=== PATIENT | female | born 1955 | race Caucasian/White ===

== ENCOUNTER → 2016-12-10 | Outpatient (CLI) | payer BC ==
[~2016-12-10] VITALS: Ht 154.9 cm; Wt 63.0 kg
[~2016-12-10] MED LIST: AMBIEN10 MG PO; DILAUDID 2MG(HYD2 MG PO; MULTI VITAMIN1 EACH PO; NEURONTIN300 MG PO; NORCO 5-325 TA1 EACH PO; PHILLIPS500 MG PO; PROZAC20 MG PO; PSYLLIUM HUSK1 GM PO; VALIUM5 MG PO; VITAMIN B-12500 MC3 SL; VITAMIN D1000 UNIT PO; XARELTO10 MG PO; ZETIA10 MG PO; ZYRTEC10 MG PO
== END | disposition disaster alternative care site (69) ==
LOC: GPOC 12:47 → EDSTATUS 12-11
DX: Z01.812 Encounter for preprocedural laboratory examination (principal); Z96.641 Presence of right artificial hip joint

== ENCOUNTER 2016-12-15 07:00 | Inpatient (IN) | payer BC ==
[~2016-12-15] VITALS: Ht 154.9 cm; Wt 63.0 kg
--- NOTE | ~2016-12-15 | DS ---
PATIENT'S NAME: LISA GUAMAN [facility] AGE: 61 Y [address] ROOM: [place] [address] LOCATION: N ADMIT DATE: 12/15/2016 Discharge Summary DISCHARGE DATE: 12/17/2016 FAMILY PHYSICIAN: Missy Hernandes APRN ATTENDING PHYSICIAN: Junaid Hodge DATE OF PROCEDURE: 12/15/2016. 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 SECONDARY DIAGNOSES: 1. Hypercholesterolemia. 2. Depression. 3. Hyperlipidemia. 4. Chronic insomnia. PROCEDURE PERFORMED: 1. Revision right total hip arthroplasty (extraction of well-fixed fractured femoral component with extended trochanteric osteotomy). 2. Revision of entire femoral component. 3. Revision of acetabular polyethylene liner. 4. Extensive synovectomy. HISTORY: The patient is a 61-year-old female, who underwent a primary right total hip arthroplasty with Dr. Reji Savage in [place] in 2010. She presents with significant pain and dysfunction. Her femoral component has fractured above the modular porous ingrowth metaphyseal seal sleeve of her S- ROM-type femoral component. Risks, benefits, limitations, and alternatives to revision total hip arthroplasty have been thoroughly reviewed. Please refer to her outpatient clinic notes and her admission history and physical. HOSPITAL COURSE: The patient underwent the above specified procedure on 12/15/2016 without complications. Spinal anesthesia plus general endotracheal anesthesia plus subcutaneous and periarticular local anesthesia was utilized. She received 72 hours of perioperative prophylactic antibiotics. Antibiotics were discontinued on postop day # 3, when cultures of synovial fluid taken at time of surgery were negative. She remained hemodynamically stable and neurovascularly intact throughout her entire hospital course. Her postoperative deep venous thrombosis prophylaxis consisted of Xarelto, early mobilization, and pneumatic compression devices. She received daily physical therapy for gait training and transfer training and reinforcement of her hip dislocation precautions and progressed well in physical therapy. On the date of discharge, the incision of the hip was healing well and showed no signs of infection. PATIENT'S NAME: LISA GUAMAN [facility] AGE: 61 Y [address] ROOM: [place] [address] LOCATION: [facility] ADMIT DATE: 12/15/2016 Discharge Summary DISCHARGE DATE: 12/17/2016 FAMILY PHYSICIAN: Missy Hernandes APRN ATTENDING PHYSICIAN: Junaid Hodge DISPOSITION: Home. DISCHARGE DIET: Regular diet. DISCHARGE ACTIVITY: She is to be strict touch toe weightbearing of the right lower extremity. She is to abide by her hip dislocation precautions diligently. She is to notify Dr. Hodge immediately if she experiences increased pain, fevers, chills, erythema, or drainage. There is to be no dressing changes. HER DISCHARGE MEDICATIONS: Include: 1. Xarelto 10 mg, take one tab p.o. daily for DVT prevention. 2. [place] 5/325, take 1-2 tablets p.o. every 4 hours as needed for pain. 3. Valium 5 mg, take 1/2 tablet to one tab every 6 hours as needed for muscle spasms. 4. Dilaudid 2 mg, take 1-2 tablets p.o. every 4 hours as needed for pain. FOLLOWUP: Followup appointment is to be with Dr. Hodge in one week subsequent to dismissal from the hospital for initial postop reevaluation. ARCENIO MANRIQUEZ FOR MD ROBB DAMICO/modl /[id number] d: 12/31/16 0322 t: 01/05/17 1539, DISCHARGE SUMMARY
--- NOTE | ~2016-12-15 | OR ---
[facility] AGE[facility] 61 Y [address] ROOM: [address] [address] LOCATION: [facility] ADMIT DATE: 12/15/2016 OR/Procedure Report DISCHARGE DATE: FAMILY PHYSICIAN: Missy Hernandes APRN ATTENDING PHYSICIAN: ERNESTINA FRASER SURGEON: Ernestina Fraser MD CURTAIN FRAMER: 1. Timo Romo CST/GENIA. 2. Ernestina Chen. 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 PROCEDURES PERFORMED: 1. Revision right total hip arthroplasty (extraction of well-fixed fractured femoral component with extended trochanteric osteotomy). 2. Revision of entire femoral component. 3. Revision of acetabular polyethylene liner. 4. Extensive synovectomy. ANESTHESIA: Spinal anesthesia plus general endotracheal anesthesia plus subcutaneous and periarticular local anesthesia (ropivacaine with epinephrine and Toradol). DRAINS: None. SPECIMENS: Synovial fluid and synovial tissue for culture. COMPLICATIONS: None. ESTIMATED BLOOD LOSS: Approximately 250 mL. EXPLANTS: Fractured [employer] modular femoral component and ceramic head. Ceramic liner. IMPLANTS: [employer] Ren[employer] modular revision hip system, size A 60 mm standard proximal cone body with 150 mm x 13 mm STS distal stem and 100 mm trochanteric claw with trochanteric bolt x1 and [place] 2.0 mm cables x3. 32 mm Biolox femoral head with -3 mm neck length. INDICATION FOR PROCEDURE: Ms. Pfeiffer is a 61-year-old female who underwent a primary right total hip arthroplasty with Dr. Reji Savage in [place] PATIENT'S NAME: LISA PFEIFFER [facility] AGE: 61 Y [address] ROOM: [address] [address] LOCATION: [facility] ADMIT DATE: 12/15/2016 OR/Procedure Report DISCHARGE DATE: FAMILY PHYSICIAN: Missy Hernandes APRN ATTENDING PHYSICIAN: ERNESTINA FRASER in 2010. She presents with significant pain and dysfunction. Her femoral component has fractured above the modular porous ingrowth metaphyseal sleeve of her S-ROM-type femoral component. She has a [id number] articulation. Femoral and acetabular components are well-fixed and well- aligned. Risks, benefits, limitations, and alternatives to this procedure have been thoroughly reviewed, and informed consent has been granted. We have specifically reviewed risks and implications of infection, deep venous thrombosis, pulmonary embolism, mortality, wear, loosening, instability, nonunion and/or malunion of the anticipated trochanteric osteotomy, and potential need for removal of trochanteric hardware. Informed consent has been granted. DESCRIPTION OF PROCEDURE: The patient was positioned in a left lateral decubitus position after administration of general endotracheal anesthesia, spinal anesthesia, and prophylactic antibiotics. The left leg was well- padded, and an axillary roll was placed. The pelvis was locked perpendicularly to the floor on a pegboard. The right hip and right lower extremity were prepped and draped with vigilant sterile technique. There was a well-healed abridged posterolateral scar. This was slightly too posterior for an optimally extensile approach. Thus, the posterolateral incision was made slightly anterior to the preexisting scar. The fascia lelo and gluteus matt fascia were divided sharply in line with the overlying skin incision. There was brown-colored mildly proliferative synovitis at the posterior aspect of the greater trochanter. There was no mars metallosis. There was a moderate amount of benign-appearing translucent synovial fluid. This was sent for routine culture. The posterior pseudocapsule was divided. The sciatic nerve was identified and was vigilantly protected throughout the entire case. The femoral component was found to be fractured at the base of the neck (immediately proximal to the porous ingrowth metaphyseal sleeve). The fractured portion of the femoral neck and the femoral head were extracted. Unfortunately, the femoral component had fractured flush with the proximal margin of the metaphyseal sleeve. Thus, there was nothing to grasp to extract the femoral component. Furthermore, there was dense bony ingrowth throughout the metaphyseal sleeve. Thus, a trochanteric osteotomy was indicated. This was performed 5 mm distal to the end of the metaphyseal sleeve. The osteotomy was hinged open from posterior to anterior. Flexible osteotomes were utilized to free the ingrowth surface. A vice operations tech slap hammer was subsequently utilized to extract the femoral component. A single cerclage cable was placed immediately distal to the distal margin of the trochanteric osteotomy. The femur was reamed up to a size 13 with tapered conical reamers. The patient's body habitus was quite small, and the endosteal diameter of the femoral diaphysis was confirmed to be quite stenotic. The size 13 reamer obtained excellent endosteal cortical contact. PATIENT'S NAME: LISA PFEIFFER [facility] AGE: 61 Y [address] ROOM: [place] [address] LOCATION: [facility] ADMIT DATE: 12/15/2016 OR/Procedure Report DISCHARGE DATE: FAMILY PHYSICIAN: Missy Hernandes APRN ATTENDING PHYSICIAN: ERNESTINA FRASER Circumferential acetabular exposure was obtained. There was mild generalized synovitis. A synovectomy was performed. The ceramic liner was extracted. The acetabular component was confirmed to be well-fixed and well-aligned. A trial neutral liner was placed. Trial reductions were performed. The above- specified construct yielded appropriate leg length and stability. The final acetabular liner was impacted into position. The final femoral component was impacted into position. The proximal body was set with approximately 15 degrees of anteversion, and the set screw was deployed with the torque-limiting wrench. The trunnion was thoroughly cleansed and dried prior to impaction of the femoral head. A final reduction was performed. There was excellent stability prior to fixation of the trochanteric osteotomy. Specifically, the hip could be hyperflexed to 130 degrees in neutral rotation and 0 degrees of abduction without instability. In full extension and 0 degrees of abduction, the hip could be firmly externally rotated without anterior subluxation. At 90 degrees of flexion and 0 degrees of abduction, the hip could be internally rotated to 60 degrees before there was posterior subluxation. Hemostasis was good throughout the entire case. The entire incision and entire joint space were thoroughly irrigated with bacteriostatic pulsatile saline lavage at this point as well as several times throughout the case. The trochanteric osteotomy was reduced and stabilized with a trochanteric claw and trochanteric operations tech and 2 supplemental cerclage cables. The fascia was closed with multiple simple interrupted #1 Ethibond and #1 Vicryl sutures. Subcutaneous tissues were irrigated once again prior to closure with simple deep interrupted 0 Vicryl, followed by superficial buried interrupted 2-0 Vicryl, followed by a running subcuticular 3-0 Monocryl suture, followed by Dermabond and Steri-Strips with benzoin, followed by an occlusive Mepilex dressing. POSTOPERATIVE REHABILITATION PLAN: Toe-touch weightbearing for 2 months. Followup radiographs at one week and one month and 2 months. MD ALLEY DAMICO/alejandro /[id number] d: 12/16/16 1200 t: 01/03/17 2140, OPERATIVE SUMMARY
[~2016-12-15 07:00] MED LIST changes: -DILAUDID 2MG(HYD2 MG PO; -NEURONTIN300 MG PO; -VALIUM5 MG PO; -XARELTO10 MG PO
[2016-12-16 05:28] LABS: HEMATOCRIT 26.7 % (33.0-46.0); HEMOGLOBIN 8.7 g/dL (10.0-15.0)
[2016-12-17] MEDS ORDERED: NEURONTIN300 MG PO (13:30)
[2016-12-17] MEDS ORDERED: XARELTO10 MG PO (13:31)
[2016-12-17] MEDS ORDERED: VALIUM5 MG PO (13:31)
[2016-12-17] MEDS ORDERED: DILAUDID 2MG(HYD2 MG PO (13:33)
== END 2016-12-17 14:00 | disposition disaster alternative care site (69) | DRG 468 ==
LOC: G3N 11:13
PROVIDERS: ADMIT Orthopaedic Surgery
PROC: 0SP909Z Removal of Liner from Right Hip Joint, Open Approach (ICD-10-PCS; principal; 2016-12-16)
PROC: 0SUA09Z Supplement Right Hip Joint, Acetabular Surface with Liner, Open Approach (ICD-10-PCS; principal; 2016-12-16)
PROC: 0SP90JZ Removal of Synthetic Substitute from Right Hip Joint, Open Approach (ICD-10-PCS; principal; 2016-12-16)
PROC: 0SBC0ZZ Excision of Right Knee Joint, Open Approach (ICD-10-PCS; principal; 2016-12-16)
PROC: 0SRR0JA Replacement of Right Hip Joint, Femoral Surface with Synthetic Substitute, Uncemented, Open Approach (ICD-10-PCS; principal; 2016-12-16)
DX: T84.010A Broken internal right hip prosthesis, initial encounter (principal); Z96.641 Presence of right artificial hip joint; F32.9 Major depressive disorder, single episode, unspecified; E78.00 Pure hypercholesterolemia, unspecified; E78.5 Hyperlipidemia, unspecified; G47.00 Insomnia, unspecified; M65.9 Synovitis and tenosynovitis, unspecified
CPT/HCPCS: C1776; J0690; J1100; J1170; J1885; J2001; J2250; J2405; J2795; J3010; J3370; J7050; J7120